=== PATIENT | male | born 1995 | race Caucasian/White ===

== ENCOUNTER 2017-12-10 12:25 | Emergency (ER) | payer BC ==
[~2017-12-10] VITALS: Ht 175.3 cm; Wt 63.6 kg
[2017-12-10 13:06] VITALS: Ht 175.3 cm; Wt 63.6 kg
[2017-12-10 16:09] LABS: BASOPHILS 0.2 % (0-2); EOSINOPHILS 1.5 % (0-7); HEMATOCRIT 44.3 % (42.0-54.0); HEMOGLOBIN 15.2 g/dL (13.5-17.5); IMMATURE GRANULOCYTES 0.2 % (0-5); MCH 31.3 pg (26.0-34.0); MCHC 34.3 g/dL (31.0-37.0); MCV 91.3 fL (80.0-100.0); MEAN PLATELET VOLUME 9.2 fL (7.4-10.4); MONOCYTES 7.2 % (2-11); NEUTROPHILS 70.9 % (40-80); PLATELET COUNT 286 10x3/uL (130-400); RBC 4.85 10x6/uL (4.20-6.10); RDW 12.4 % (11.5-14.5); WBC 9.8 10x3/uL (4.8-10.8)
[2017-12-10] MEDS ORDERED: VIBRAMYCIN 100100 MG PO (17:01)
[2017-12-10 17:36] VITALS: BP 126/82
== END 2017-12-10 17:38 | disposition home or self-care (01) ==
LOC: D.ER 12:25
PROVIDERS: Family Medicine
DX: J40 Bronchitis, not specified as acute or chronic (principal)

== ENCOUNTER 2017-12-14 23:58 | Emergency (ER) | payer MEDICAID ==
[~2017-12-14] VITALS: Ht 175.3 cm; Wt 64.5 kg
[~2017-12-14 23:58] MED LIST: VIBRAMYCIN 100100 MG PO
[2017-12-15 00:10] VITALS: BP 138/92; Ht 175.3 cm; Wt 64.5 kg
[2017-12-15] MEDS ORDERED: NAPROSYN500 MG PO (02:19)
== END 2017-12-15 02:29 | disposition home or self-care (01) ==
LOC: D.ER 23:58
DX: S60.222A Contusion of left hand, initial encounter (principal); V43.62XA Car passenger injured in collision with other type car in traffic accident, initial encounter; Y93.89 Activity, other specified; Y92.410 Unspecified street and highway as the place of occurrence of the external cause